=== PATIENT | female | born 1930 | race Caucasian/White ===

== ENCOUNTER 2021-03-23 19:00 | Outpatient (CLI) | payer MEDICARE, OTHER | END 2021-03-23 19:01 | disposition home or self-care (01) | LOC: SLEEPLAB 19:00 | PROVIDERS: ATTEND Internal Medicine Pulmonary Disease | DX: G47.33 Obstructive sleep apnea (adult) (pediatric) (principal); G47.10 Hypersomnia, unspecified; R06.83 Snoring; R53.83 Other fatigue; G47.00 Insomnia, unspecified; I48.91 Unspecified atrial fibrillation; I10 Essential (primary) hypertension | CPT/HCPCS: 95810 ==